=== PATIENT | female | born 1990 | race Caucasian/White ===

== ENCOUNTER → 2022-10-16 12:26 | Outpatient (BNVA) | payer OTHER, SELFPAY | PROVIDERS: Visit Provider Podiatrist Foot & Ankle Surgery | DX: M77.8 Other enthesopathies, not elsewhere classified (principal); M25.572 Pain in left ankle and joints of left foot; L85.3 Xerosis cutis; B07.0 Plantar wart | CPT/HCPCS: 73630 ==